=== PATIENT | female | born 2000 ===

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

== ENCOUNTER 2019-02-09 22:04 | Outpatient (REF) | payer BC, SELFPAY | END 2019-02-09 22:24 | LOC: NCHCN 22:04 | PROVIDERS: PCP Nurse Practitioner Family; Visit Provider Specialist/Technologist Athletic Trainer | DX: J02.9 Acute pharyngitis, unspecified (principal) | CPT/HCPCS: 87070 ==

== ENCOUNTER 2019-09-09 12:31 | Outpatient (REF) | payer BC, SELFPAY ==
--- NOTE | 2019-09-09 11:45 | PAPFT_PTH ---
PATIENT: Siomara Willoughby LOC: [facility]#:[id number] AGE/SX: 19/F ROOM: RE09/09/[address]: Ernestina Howard : 2000 BED: DIS: 09/09/2019 SPEC #: [id number] RECD: 09/12/19 12:41 STATUS: SIMA RELorena #: [id number] MARY: 09/09/19 11:[address]: Ernestina Howard DEPT: [facility] Cytology RECD BY: Harika Ramirez Tissues: 1 - CX/ENDOCX FOR PAP SMEARS Procedures: PAP THIN PREP/[facility] Screening Comments: [id number]
== END 2019-09-09 12:51 ==
LOC: NCHCN 12:31
PROVIDERS: PCP Nurse Practitioner Family; Visit Provider Nurse Practitioner Family
DX: Z12.4 Encounter for screening for malignant neoplasm of cervix (principal); Z00.00 Encounter for general adult medical examination without abnormal findings; Z01.419 Encounter for gynecological examination (general) (routine) without abnormal findings
CPT/HCPCS: 88142

== ENCOUNTER 2019-11-04 09:46 | Outpatient (CLI) | payer BC, SELFPAY ==
--- NOTE | 2019-11-04 09:15 | DI.RAD_ITS ---
EXAM: XR KNEE LT 4V AP,LAT,SARAH BETH,PAT CLINICAL HISTORY: eval L knee pain. TECHNIQUE: 2D digital imaging was performed. COMPARISON: XR knee RT 3V AP,lat,sarah beth from 05/19/2018 FINDINGS: BONES: No acute fracture is present. No bony destructive lesion is seen. JOINTS: The knee is normally aligned. No joint effusion is seen. SOFT TISSUE: Normal. IMPRESSION: Normal radiographs of the left knee. DATA REPOSITORY: RADIATION DOSE DELIVERED:
== END 2019-11-04 10:06 ==
PROVIDERS: PCP Nurse Practitioner Family; Visit Provider Student in an Organized Health Care Education/Training Program
DX: M25.562 Pain in left knee (principal)
CPT/HCPCS: 73564

== ENCOUNTER 2020-01-31 11:10 | Outpatient (CLI) | payer BC, SELFPAY ==
[2020-02-01 15:05] LABS: COVID-19 RT-PCR UVMMC Result Negative (Negative)
== END 2020-01-31 11:30 ==
PROVIDERS: PCP Nurse Practitioner Family; Visit Provider Nurse Practitioner Family
DX: Z11.59 Encounter for screening for other viral diseases (principal)
CPT/HCPCS: U0003

== ENCOUNTER 2020-03-09 15:11 | Outpatient (REF) | payer BC, SELFPAY ==
[2020-03-13 15:08] LABS: Chlamydia Result Negative (Negative); GC Result Negative (Negative)
== END 2020-03-09 15:31 ==
LOC: LBN 15:11
PROVIDERS: PCP Nurse Practitioner Family; Visit Provider Nurse Practitioner Family
DX: Z11.3 Encounter for screening for infections with a predominantly sexual mode of transmission (principal)
CPT/HCPCS: 87491; 87591

== ENCOUNTER 2020-06-12 11:50 | Outpatient (REF) | payer BC, SELFPAY ==
--- NOTE | 2020-06-12 10:00 | PAPFT_PTH ---
PATIENT: Siomara Willoughby LOC: [place] U#:[id number] AGE/SX: 20/F ROOM: RE06/12/[address]: July Sharma NP : 2000 BED: DIS: 06/12/2020 SPEC #: [id number] RECD: 06/12/20 12:52 STATUS: SIMA REQ #: [id number] MARY: 06/12/20 10:[address]: July Sharma NP DEPT: [facility] Cytology RECD BY: Harika Ramirez ENTERED: 06/12/20 12:53 SP TYPE: PAPFT OTHR DR: Ernestina Howard Tissues: 1 - CX/ENDOCX FOR PAP SMEARS Procedures: PAP THIN PREP/[facility] Screening Comments: [id number] (CHLAMYDIA/GC)
[2020-06-14 15:35] LABS: Chlamydia Result Negative (Negative); GC Result Negative (Negative)
== END 2020-06-12 12:10 ==
LOC: LBN 11:50
PROVIDERS: PCP Nurse Practitioner Family; Visit Provider Nurse Practitioner Women's Health
DX: Z11.3 Encounter for screening for infections with a predominantly sexual mode of transmission (principal); Z12.4 Encounter for screening for malignant neoplasm of cervix
CPT/HCPCS: 87491; 87591; 88142

== ENCOUNTER 2020-11-01 09:08 | Outpatient (REF) | payer BC, SELFPAY ==
[2020-11-01 14:08] LABS: Abs Immature Grans 0.02 10^3/uL (0.0-0.06); Absolute Basophil Count 0.08 10^3/uL (0.0-0.2); Absolute Eosinophil Count 0.12 10^3/uL (0.0-0.7); Absolute Lymphocyte Count 1.78 10^3/uL (1.2-3.4); Absolute Monocyte Count 0.52 10^3/uL (0.1-0.8); Absolute Neutrophil Count 5.02 10^3/uL (1.2-6.7); Basophils % 1.1; Eosinophils % 1.6; HCT 41.6 % (36.0-46.0); HGB 14.1 g/dL (11.2-15.7); Immature Grans % 0.3; Lymphocytes % 23.6; MCH 31.3 pg (27.0-33.0); MCHC 33.9 % (32.0-36.0); MCV 92.2 fL (80-95); MPV 11.3 fL (8.0-11.0); Monocytes % 6.9; Neutrophils % 66.5; Nucleated RBC 0 %; Platelet Count 391 10^3/uL (130-400); RBC 4.51 10^6/uL (3.93-5.22); RDW 11.8 % (11.7-14.6); RDW-SD 40.5 fL; WBC 7.54 10^3/uL (4.4-10.8)
[2020-11-01 14:34] LABS: ALT 18 U/L (14-59); AST 13 U/L (15-37); Albumin 4.3 g/dL (3.4-5.0); Alkaline Phosphatase 22 U/L (46-116); Anion Gap 13.7 mmol/L (3-11); BUN 11 mg/dL (7-18); Bilirubin, Total 0.9 mg/dL (0.2-1.0); CO2 23.3 mmol/L (21.0-32.0); CREATININE 0.9 mg/dL (0.55-1.02); Calcium 9.7 mg/dL (8.5-10.1); Chloride 105 mmol/L (98-107); Glucose 78 mg/dL (74-106); Potassium 3.9 mmol/L (3.5-5.1); Sodium 142 mmol/L (136-145); TSH (W/Ref FT4) 0.89 uIU/mL (0.36-3.74); Total Protein 7.5 g/dL (6.4-8.2)
== END 2020-11-01 09:09 | disposition home or self-care (01) ==
LOC: NCHCN 09:08
PROVIDERS: PCP Nurse Practitioner Family; Visit Provider Nurse Practitioner Family
DX: R19.7 Diarrhea, unspecified (principal)
CPT/HCPCS: 80053; 84443; 85025

== ENCOUNTER 2023-07-10 15:00 | Outpatient (REF) | payer BC, SELFPAY ==
--- NOTE | 2023-07-10 15:00 | PAPFT_PTH ---
PATIENT: Siomara Willoughby LOC: [place] U#:[id number] AGE/SX: 23/F ROOM: RE07/10/[address]: Kayla Fontanez : 2000 BED: DIS: 07/10/2023 SPEC #: [id number] RECD: 07/10/23 17:22 STATUS: SIMA RELorena #: [id number] MARY: 07/10/23 15:[address]: Kayla Fontanez DEPT: [facility] Cytology RECD BY: Harika Ramirez ENTERED: 07/10/23 17:22 SP TYPE: PAPFT OTHR DR: Ernestina Howard Tissues: 1 - CX/ENDOCX FOR PAP SMEARS Procedures: PAP THIN PREP/[facility] Screening Comments: [id number]
== END 2023-07-10 15:01 | disposition home or self-care (01) ==
LOC: LBN 15:00
PROVIDERS: PCP Nurse Practitioner Family; Visit Provider Advanced Practice Midwife
DX: Z12.4 Encounter for screening for malignant neoplasm of cervix (principal)
CPT/HCPCS: 88142

== ENCOUNTER 2025-02-17 00:50 | Outpatient (CLI) | payer BC, SELFPAY ==
[2025-02-17 09:56] LABS: HCT 43.1 % (36.0-46.0); HGB 14.5 g/dL (11.2-15.7); MCH 31.3 pg (27.0-33.0); MCHC 33.6 % (32.0-36.0); MCV 93 fL (80-95); MPV 10.4 fL (8.0-11.0); Platelet Count 328 10^3/uL (130-400); RBC 4.64 10^6/uL (3.93-5.22); RDW 11.9 % (11.7-14.6); RDW-SD 40.6 fL; WBC 7.21 10^3/uL (4.4-10.8)
[2025-02-17 10:24] LABS: INR 1.2 (0.9-1.1); PTT Activated 26.5 sec (20.6-30.2); Prothrombin Time 11.8 sec (9.1-11.1)
[2025-02-17 10:54] LABS: Iron 139 ug/dL (50-170); Total Iron Binding Capacity 327 ug/dL (250-450); Transferrin Sat 43 % (15-50)
[2025-02-17 10:59] LABS: ALT 23 U/L (14-59); AST 19 U/L (15-37); Albumin 4.7 g/dL (3.4-5.0); Alkaline Phosphatase 24 U/L (46-116); BUN 11 mg/dL (7-18); CREATININE 0.7 mg/dL (0.55-1.02); Calcium 9.5 mg/dL (8.5-10.1); Chloride 105 mmol/L (98-107); Estimated GFR 123.01 (mL/min/1.73m2); Ferritin 55 ng/mL (8-252); Glucose 93 mg/dL (74-106); Potassium 3.9 mmol/L (3.5-5.1); Sodium 142 mmol/L (136-145); TSH (W/Ref FT4) 0.98 uIU/mL (0.36-3.74); Total Protein 8.2 g/dL (6.4-8.2)
[2025-02-20 10:34] LABS: Transferrin 228 mg/dL (201-352)
== END 2025-02-17 00:51 | disposition home or self-care (01) ==
LOC: LBO 00:50
PROVIDERS: PCP Nurse Practitioner Family; Visit Provider Nurse Practitioner Family
DX: R23.3 Spontaneous ecchymoses (principal)
CPT/HCPCS: 36415; 80053; 85027; 82728; 83540; 83550; 84443; 84466; 85610; 85730

== ENCOUNTER 2025-06-21 01:59 | Outpatient (CLI) | payer BC, SELFPAY ==
[2025-06-21 16:40] LABS: Abs Immature Grans 0.12 10^3/uL (0.0-0.06); HCT 36.3 % (36.0-46.0); HGB 12.6 g/dL (11.2-15.7); Immature Grans % 0.8 %; MCH 31.7 pg (27.0-33.0); MCHC 34.7 % (32.0-36.0); MCV 91 fL (80-95); MPV 10.4 fL (8.0-11.0); Platelet Count 312 10^3/uL (130-400); RBC 3.98 10^6/uL (3.93-5.22); RDW 12.3 % (11.7-14.6); RDW-SD 40.8 fL; WBC 15.64 10^3/uL (4.4-10.8)
[2025-06-22 19:02] LABS: Hepatitis C Ab w Rflx HCV PCR Negative (Negative)
[2025-06-22 19:08] LABS: HIV-1/2 Ag & Ab Screen Negative (Negative)
[2025-06-23 10:40] LABS: Rubella IgG Ab (UVM) Positive (See Note)
[2025-06-26 15:02] LABS: Syphilis IgG w/Reflex Nonreactive (Nonreactive)
== END 2025-06-21 02:00 | disposition home or self-care (01) ==
LOC: LBO 02:00
PROVIDERS: PCP Nurse Practitioner Family; Visit Provider Advanced Practice Midwife
DX: Z34.91 Encounter for supervision of normal pregnancy, unspecified, first trimester (principal); O30.001 Twin pregnancy, unspecified number of placenta and unspecified number of amniotic sacs, first trimester
CPT/HCPCS: 36415; 86787; 86803; 86850; 86900; 86901; 87340; 87389; 85025; 86762; 86780

== ENCOUNTER 2025-06-21 18:32 | Outpatient (REF) | payer OTHER, SELFPAY ==
[2025-06-23 13:27] LABS: Chlamydia Result Negative (Negative); GC Result Negative (Negative)
== END 2025-06-21 18:33 | disposition home or self-care (01) ==
LOC: LBN 18:32
PROVIDERS: PCP Nurse Practitioner Family; Visit Provider Advanced Practice Midwife
DX: Z34.91 Encounter for supervision of normal pregnancy, unspecified, first trimester (principal)
CPT/HCPCS: 87491; 87591; 87086